=== PATIENT | male | born 1960 | race Caucasian/White ===

== ENCOUNTER 2017-07-06 20:09 | Inpatient (IN) | payer BC ==
[~2017-07-06] VITALS: Ht 165.1 cm; Wt 80.1 kg
--- NOTE | ~2017-07-06 | HP ---
History And Physical [id number] [place]. [address] NAME: AGA SELBY : 60 STATUS : ADM IN PAT#: [id number] AGE: 57 ADM/REG DATE : 07/06/17 MR#: [id number] REPORT SERV DATE: 07/06/17 DICTATED BY: MAYA CARIAS DATE: 07/06/17 REPORT STATUS : Draft TRANSCRIBED BY: MODL DATE: 07/06/17 DATE OF ADMISSION: 07/06/2017 The patient is a very pleasant 57-year-old male with a history of coronary artery disease, status post coronary artery bypass grafting in March, history of CHF, chronic systolic dysfunction with ejection fraction 29%, history of chronic kidney disease, hypertension, and hyperlipidemia presented with shortness of breath which was going on approximately for 10 days, progressively increasing initially on ambulation, then progressed to at rest as well as he had cough with clear sputum. The patient is also complaining of lower extremity swelling. He is complaining of substernal pain on and off. He said that after coronary artery bypass grafting, he was undergoing cardiac rehabilitation, but he was unable to finish his cardiac rehabilitation secondary to above-mentioned symptoms. Patient saw his special education resource teacher, Jonathan Hayes, recently, and he said that he recommended to continue cardiac rehabilitation therapy. The patient said that he was compliant with his medications and taking them regularly. PAST MEDICAL HISTORY: I dictated above, history of acute systolic heart failure exacerbation in March of this year, hypertension, ischemic cardiomyopathy, history of coronary artery bypass grafting in March of this year by Dr. Brar, chronic kidney disease, and diabetes. SURGICAL HISTORY: Includes only history of coronary artery bypass grafting. SOCIAL HISTORY: Patient used to smoke three packs a day before. He decreased to one to two cigarettes a day. He used to drink beer. No alcohol. He never used recreational drugs. FAMILY HISTORY: Positive for breast cancer in his mother, and father had coronary artery bypass grafting. ALLERGIES: HE SAID THAT MANY YEARS AGO, HE WAS TOLD THAT HE IS ALLERGIC TO DIABETIC MEDICATION, BUT HE CANNOT REMEMBER WHAT TYPE OF DIABETIC MEDICATION IT WAS. HOME MEDICATIONS: He takes carvedilol, aspirin, and other medications. Pharmacy is going to present the list to me to address. It is not clarified yet by pharmacy. PHYSICAL EXAMINATION: GENERAL: Well-nourished, well-developed male, not in acute distress, resting quietly. VITAL SIGNS: Blood pressure 191/87, temperature 98.2, heart rate 91, respiratory rate 18, and oxygen saturation 91 on room air. HEENT: Head atraumatic and normocephalic. Conjunctivae clear. Pupils are equal and reactive to light and accommodation. Extraocular muscles are intact. NECK: Supple. Trachea is midline. No supraclavicular or cervical lymphadenopathy. LUNGS: Diminished breath sounds bilaterally with mild rhonchi. Normal respiratory effort. CARDIOVASCULAR SYSTEM: Regular rate and rhythm. Point of maximal impulse not displaced. ABDOMEN: Soft, nontender, and nondistended. Positive normoactive bowel sounds. EXTREMITIES: No clubbing or cyanosis. 1+ edema. PSYCHIATRIC: Normal mood and affect. History And Physical [address] [address] NAME: AGA SELBY : 60 STATUS : ADM IN [facility]#: [id number] AGE: 57 ADM/REG DATE : 07/06/17 MR#: [id number] REPORT SERV DATE: 07/06/17 DICTATED BY: MAYA CARIAS DATE: 07/06/17 REPORT STATUS : Draft TRANSCRIBED BY: AGNIESZKA DATE: 07/06/17 NEUROLOGIC: Awake, alert, and oriented in time, place, and person. Muscle strength is 5/5 bilaterally in upper and lower extremities. SKIN: Normal color and turgor. LABORATORY RESULTS: Sodium 143, potassium 4.2, chloride 113, carbon dioxide 22, BUN 32, creatinine 1.99. His troponin is 0.09. His creatinine on May 14 was 1.73. White count 8.9, hemoglobin 11.3, hematocrit 34.3, and platelet count 226. PT 13.9, INR is 1.1. Chest x-ray showed cardiomegaly with pulmonary vascular congestion. BNP was 932.4. Troponin 0.09. His EKG showed normal sinus rhythm with a rate of 85, right bundle-branch block. ASSESSMENT AND PLAN: This is a very pleasant 57-year-old male with a past medical history of coronary artery disease, history of recent coronary artery bypass grafting, history of congestive heart failure, ischemic cardiomyopathy with ejection fraction 29%, history of diabetes, neuropathy as well as chronic kidney disease presented with. 1. Acute congestive heart failure exacerbation. 2. Hypertension, uncontrolled. 3. Chronic kidney disease, currently at the baseline. 4. Diabetes mellitus. We will admit the patient under cardiac telemetry for his acute CHF exacerbation. Patient already received Lasix intravenously in the emergency room. We will give him Bumex 1 mg IV b.i.d. x2 dosages and ask resident services manager to manage his diuretics. In the same time, we will do strict input and output and daily weights. Regarding his chest pain and minimally elevated troponin, we will treat his chest pain with nitroglycerin as needed and will monitor his troponin. His troponin is 0.09, but this could be related also to chronic kidney disease, abnormal creatinine increasing his troponin. Diabetes mellitus type 2. We will put him on insulin sliding scale. Currently, blood sugar is controlled and if necessary, my partner can add also Levemir. At home, he told me patient uses Levemir. Chronic kidney disease. Creatinine at baseline. Hypertension, hypertensive urgency. We will give the patient hydralazine as needed for systolic blood pressure more than 160. In the same time, we will use nitroglycerin for the chest pain and Bumex which should take care of the patient's blood pressure. I will also consult his special education resource teacher, Dr. Hayes, and my partner will see this patient starting tomorrow morning. MG/AGNIESZKA History And Physical [address] [address] NAME: AGA SELBY : 60 STATUS : ADM IN [facility]#: [id number] AGE: 57 ADM/REG DATE : 07/06/17 MR#: [id number] REPORT SERV DATE: 07/06/17 DICTATED BY: MAYA CARIAS DATE: 07/06/17 REPORT STATUS : Draft TRANSCRIBED BY: AGNIESZKA DATE: 07/06/17 Maya Carias M.D. / [id number] CC: RODNEY BEDOYA Jr, M.D. Gregg Shander, M.D. Wilson M. Clements, MD
--- NOTE | ~2017-07-06 | CN ---
Consultation Report [facility] [address] [place]. [address] NAME: AGA SELBY : 60 STATUS : ADM IN PAT#: [id number] AGE: 57 ADM/REG DATE : 07/06/17 MR#: [id number] REPORT SERV DATE: 07/07/17 DICTATED BY: NORM GOMEZ DATE: 07/07/17 REPORT STATUS : Draft TRANSCRIBED BY: MODL DATE: 07/07/17 CARDIOLOGY CONSULTATION DATE OF CONSULTATION: 07/07/2017 REASON FOR CONSULTATION: Congestive heart failure, patient with known history of coronary artery disease, status post recent CAB. HISTORY OF PRESENT ILLNESS: Mr. Selby is a pleasant 57-year-old gentleman with a history of coronary artery disease and ischemic cardiomyopathy. He underwent CAB in March of this year. At that time, his ejection fraction measured at 35%. I saw him back in my clinic in early May and he was still complaining of shortness of breath noting that he was having trouble performing cardiac rehab. He did not demonstrate other signs of congestive heart failure at that time. The plan was to continue him on his congestive heart failure regimen, minimize salt intake, and have him follow up with me in about six weeks, at which time we would have him undergo repeat echocardiogram to see if his left ventricular systolic function improve. In the interim, his symptoms progressed. He was complaining of PND, orthopnea, pedal edema. He also had chest discomfort around the sternal wound site and more recently began to complain of a left axillary pain as well. He presented to the emergency room with these complaints. His BNP was elevated at over 900. His chest x-ray demonstrated some evidence for pulmonary vascular congestion and also there was either a left pleural effusion versus left-sided diaphragmatic elevation. This was only an AP chest film, there was not a PA and lateral or decubitus, but an echocardiogram was performed today that demonstrated a large left pleural effusion and mildly decreased LV systolic function with ejection fraction of 45% which again has improved since the time of surgery when it was 35%. He has responded to some degree to the intravenous Bumex, but it is somewhat limited by the fact that he has underlying stage 3 kidney disease. He is still complaining of the left axillary pain. He also had an episode where he felt as though he was having chills, although his temperature here has been afebrile. He also complained of a productive cough at home. PAST MEDICAL HISTORY: 1. Notable for recent diagnosis of coronary artery disease, status post CAB in March 2017. 2. Chronic kidney disease between stage 2 and stage 3. 3. Chronic systolic heart failure, ejection fraction 35% at time of surgery, currently 45%. 4. History of tobacco abuse. 5. Hyperlipidemia. FAMILY HISTORY: Negative for premature coronary artery disease or sudden cardiac . SOCIAL HISTORY: Former cigarette smoker. Occasional social alcohol use. Occasional use of caffeinated beverages. No illicit drug use. Consultation Report [address] [address] NAME: AGA SELBY : 60 STATUS : ADM IN [facility]#: [id number] AGE: 57 ADM/REG DATE : 07/06/17 MR#: [id number] REPORT SERV DATE: 07/07/17 DICTATED BY: NORM GOMEZ DATE: 07/07/17 REPORT STATUS : Draft TRANSCRIBED BY: AGNIESZKA DATE: 07/07/17 REVIEW OF SYSTEMS: As noted above. All other systems reviewed and negative. PHYSICAL EXAMINATION: GENERAL: In no acute distress. VITAL SIGNS: Blood pressure currently is 146/70, it has been as high as 206/100. Heart rate is 76, in sinus rhythm. Respirations 16. Afebrile. HEENT: No icterus. Good dentition. NECK: Supple. No masses or thyromegaly. LUNGS: There was a decrease in breath sounds at the left base. There are no rales, rhonchi, or wheezes. COR: Normal S1, S2. No S3 or S4. No murmurs, clicks, rubs. No JVD. ABD: Soft, nondistended, nontender, no hepatosplenomegaly. EXT: No clubbing, cyanosis or edema. Peripheral pulses 2+ or equal bilaterally. SKIN: Warm and dry. No visible lesions. MS: Chest wall without deformity, no obvious clavicular fractures. NEURO/PSYCH: Oriented x3. No anxiety or depression. LABORATORY VALUES: Electrolytes within normal limits. Creatinine is 2.02, which is at his baseline. White count is 8.8 and stable, hematocrit is 34, platelet count of 224. There was a BNP only drawn on admission and was 932. His TSH is within normal limits. As mentioned, chest x-ray on admission was an AP film showed some evidence for pulmonary vascular congestion, but there was either a left pleural effusion or elevation in the left hemidiaphragm. There is some linear atelectasis noted as well. I cannot exclude the possibility of elevation in the left hemidiaphragm. The EKG demonstrates sinus rhythm with right bundle-branch block, nonspecific ST-T wave abnormalities. No evidence for ischemia infarction or chamber hypertrophy. IMPRESSION: 1. The patient presents with shortness of breath that has been progressive. He has a recent history of CAB and has an ischemic cardiomyopathy, although it appears to be improving by his echocardiogram. Additional symptoms include musculoskeletal sternal chest discomfort, likely related to his surgery as well as left axillary discomfort. He additionally complained of chills and a productive cough. His exam and x-ray would suggest that he has some element of congestive heart failure. He does have elevation in his BNP and his LV systolic function is modestly reduced. On the other hand, he has responded to IV diuretics, but he is still having some shortness of breath. His chest x-ray suggested that he may also have a pleural effusion versus elevation in the left hemidiaphragm and an echocardiogram showed evidence for a large left pleural effusion. I would recommend performing both the diagnostic and therapeutic tap of the left-sided pleural effusion. The patient will likely have symptomatically be improved and we may be able to get some information as to the nature of the effusion and whether this is just related to either his surgery or congestive heart failure or whether there may be an infectious component. We have discussed this with the patient and he is willing to Consultation Report [address] [place]. [address] NAME: AGA SELBY : 60 STATUS : ADM IN [facility]#: [id number] AGE: 57 ADM/REG DATE : 07/06/17 MR#: [id number] REPORT SERV DATE: 07/07/17 DICTATED BY: NORM GOMEZ DATE: 07/07/17 REPORT STATUS : Draft TRANSCRIBED BY: AGNIESZKA DATE: 07/07/17 proceed with thoracentesis which we will schedule with Interventional Radiology. 2. Hypertension, difficult to control blood pressures. Hydralazine added to the patient's carvedilol. 3. Cardiomyopathy actually improved ejection fraction now 45%. He is already on carvedilol. Due to his underlying renal insufficiency, he has not been given an RED inhibitor or ARB. GS/MODL Nomr Gomez M.D. / [id number] CC: José Luis Huddleston Mindi
[~2017-07-06 20:09] MED LIST: ASAB PO; COREG3 PO; LIPITOR40 PO; NORCO1 TAB PO; NOVOPEN SC; PLAVIX PO
[2017-07-06 20:57] LABS: BASOPHILS 0.4 %; BASOPHILS ABSOLUTE 0.04 10/3/uL (0.0-0.16); EOSINOPHILS 3.9 %; EOSINOPHILS ABSOLUTE 0.35 10/3/uL (0.0-0.53); HEMATOCRIT 34.3 % (40.0-51.0); HEMOGLOBIN 11.2 g/dL (13.6-17.8); IMMATURE GRANULOCYTES 0.2 %; IMMATURE GRANULOCYTES ABSOLUTE 0.02 10/3/uL (0.0-0.11); LYMPHOCYTES 20.1 %; LYMPHOCYTES ABSOLUTE 1.79 10/3/uL (0.67-4.30); MANUAL DIFF NO %; MEAN CORPUS HGB CONC 32.7 g/dL (32.0-36.0); MEAN CORPUSCULAR HEMOGLOB 27.3 pg (26.0-34.0); MEAN CORPUSCULAR VOLUME 83.5 fL (80-100); MEAN PLATELET VOLUME 9.6 fL (9.2-13.0); MONOCYTES 7.7 %; MONOCYTES ABSOLUTE 0.69 10/3/uL (0.21-1.20); NEUTROPHILS 67.7 %; NEUTROPHILS ABSOLUTE 6.03 10/3/uL (2.02-8.40); PLATELET COUNT 226 10/3/uL (150-400); RBC DISTRIBUTION WIDTH 15.3 % (12.0-16.0); RED CELL COUNT 4.11 10/6/uL (4.7-6.1); WHITE BLOOD CELLS 8.9 10/3/uL (4.5-10.5)
[2017-07-06 21:05] LABS: INTERNATIONAL NORMAL RATI 1.1 UNITS (-); PARTIAL THROMBO TIME 31.3 SEC (22.5-37.2); PROTIME (NOT ORD) 13.9 SEC (12.0-14.5)
[2017-07-06 21:12] LABS: CHLORIDE, SERUM 113 MMOL/L (96-112); CO2 (CARBON DIOXIDE) 22 MMOL/L (24-34); CREATININE 1.99 MG/DL (0.70-1.30); GFR AFRICAN AMERICAN 42 ML/MIN (>=60); GFR NON AFRICAN AMERICAN 36 ML/MIN (>=60); GLUCOSE, SERUM 98 MG/DL (60-99); POTASSIUM, SERUM 4.2 MMOL/L (3.5-5.3); SODIUM, SERUM 143 MMOL/L (135-148)
[2017-07-06 21:13] LABS: BUN (BLOOD UREA NITROGEN) 32 MG/DL (6-23)
[2017-07-06 21:14] LABS: CHEST PAIN PROFILE TAT 0 Hrs 21 Mins; TROPONIN I 0.09 NG/ML (<0.05)
[2017-07-06] MEDS ORDERED: HALF81 PO (23:09)
[2017-07-06] MEDS ORDERED: PROZ10 PO (23:10)
[2017-07-06] MEDS ORDERED: HUMALOG KW200 UNIT/1 SC (23:10)
[2017-07-06] MEDS ORDERED: TOUJEO SC (23:10)
[2017-07-06] MEDS ORDERED: COREG12 PO (23:11)
[2017-07-06] MEDS ORDERED: PLAVIX PO (23:11)
[2017-07-06] MEDS ORDERED: PRIN10 PO (23:11)
[2017-07-06] MEDS ORDERED: COREG6 PO (23:12)
[2017-07-06] MEDS ORDERED: L20 PO (23:12)
[2017-07-06] MEDS ORDERED: ZYRTEC ALLGY10 MG PO (23:13)
[2017-07-07 01:51] LABS: BASOPHILS 0.5 %; BASOPHILS ABSOLUTE 0.04 10/3/uL (0.0-0.16); EOSINOPHILS ABSOLUTE 0.35 10/3/uL (0.0-0.53); HEMATOCRIT 34.2 % (40.0-51.0); HEMOGLOBIN 11.7 g/dL (13.6-17.8); LYMPHOCYTES 18.6 %; LYMPHOCYTES ABSOLUTE 1.63 10/3/uL (0.67-4.30); MEAN CORPUS HGB CONC 34.2 g/dL (32.0-36.0); MEAN CORPUSCULAR HEMOGLOB 28.1 pg (26.0-34.0); MEAN CORPUSCULAR VOLUME 82.2 fL (80-100); MONOCYTES 7.5 %; MONOCYTES ABSOLUTE 0.66 10/3/uL (0.21-1.20); NEUTROPHILS 69.4 %; NEUTROPHILS ABSOLUTE 6.09 10/3/uL (2.02-8.40); PLATELET COUNT 224 10/3/uL (150-400); RBC DISTRIBUTION WIDTH 15.1 % (12.0-16.0); RED CELL COUNT 4.16 10/6/uL (4.7-6.1); WHITE BLOOD CELLS 8.8 10/3/uL (4.5-10.5)
[2017-07-07 01:52] LABS: MANUAL DIFF NO %
[2017-07-07 02:09] LABS: A/G RATIO 0.7 (0.7-1.9); ALBUMIN 2.7 G/DL (3.5-5.0); BUN (BLOOD UREA NITROGEN) 34 MG/DL (6-23); CALCIUM, SERUM 8.7 MG/DL (8.5-10.4); CHLORIDE, SERUM 109 MMOL/L (96-112); CO2 (CARBON DIOXIDE) 22 MMOL/L (24-34); CREATININE 2.02 MG/DL (0.70-1.30); GFR AFRICAN AMERICAN 41 ML/MIN (>=60); GFR NON AFRICAN AMERICAN 36 ML/MIN (>=60); GLOBULIN 3.9 G/DL (2.5-4.1); GLUCOSE, SERUM 88 MG/DL (60-99); POTASSIUM, SERUM 3.8 MMOL/L (3.5-5.3); SGOT(AST) 21 U/L (5-40); SGPT(ALT) 24 U/L (5-65); SODIUM, SERUM 143 MMOL/L (135-148); TOTAL PROTEIN 6.6 G/DL (6.0-8.5)
[2017-07-07 02:11] LABS: ALKALINE PHOSPHATASE 57 U/L (45-117); TOTAL BILIRUBIN 0.3 MG/DL (0-1.2)
[2017-07-07 02:15] LABS: TROPONIN I 0.08 NG/ML (<0.05); ULTRASENSITIVE TSH 2.98 MCIU/ML (0.358-3.740)
[2017-07-08 05:08] LABS: BASOPHILS 0.4 %; BASOPHILS ABSOLUTE 0.03 10/3/uL (0.0-0.16); EOSINOPHILS 5.1 %; EOSINOPHILS ABSOLUTE 0.42 10/3/uL (0.0-0.53); HEMATOCRIT 30.3 % (40.0-51.0); HEMOGLOBIN 10.1 g/dL (13.6-17.8); IMMATURE GRANULOCYTES 0.2 %; IMMATURE GRANULOCYTES ABSOLUTE 0.02 10/3/uL (0.0-0.11); LYMPHOCYTES 24.9 %; LYMPHOCYTES ABSOLUTE 2.06 10/3/uL (0.67-4.30); MANUAL DIFF NO %; MEAN CORPUS HGB CONC 33.3 g/dL (32.0-36.0); MEAN CORPUSCULAR HEMOGLOB 27.7 pg (26.0-34.0); MEAN CORPUSCULAR VOLUME 83.2 fL (80-100); MEAN PLATELET VOLUME 9.2 fL (9.2-13.0); MONOCYTES 6.7 %; MONOCYTES ABSOLUTE 0.55 10/3/uL (0.21-1.20); NEUTROPHILS 62.7 %; NEUTROPHILS ABSOLUTE 5.18 10/3/uL (2.02-8.40); PLATELET COUNT 211 10/3/uL (150-400); RBC DISTRIBUTION WIDTH 15.2 % (12.0-16.0); RED CELL COUNT 3.64 10/6/uL (4.7-6.1); WHITE BLOOD CELLS 8.3 10/3/uL (4.5-10.5)
[2017-07-08 05:17] LABS: PARTIAL THROMBO TIME 33.7 SEC (22.5-37.2); PROTIME (NOT ORD) 13.2 SEC (12.0-14.5)
[2017-07-08 05:22] LABS: CALCIUM, SERUM 8.4 MG/DL (8.5-10.4); CHLORIDE, SERUM 108 MMOL/L (96-112); CO2 (CARBON DIOXIDE) 21 MMOL/L (24-34); CREATININE 2.11 MG/DL (0.70-1.30); GFR AFRICAN AMERICAN 39 ML/MIN (>=60); GFR NON AFRICAN AMERICAN 34 ML/MIN (>=60); POTASSIUM, SERUM 4.3 MMOL/L (3.5-5.3); SODIUM, SERUM 139 MMOL/L (135-148)
[2017-07-08 05:26] LABS: BUN (BLOOD UREA NITROGEN) 38 MG/DL (6-23); GLUCOSE, SERUM 129 MG/DL (60-99)
[2017-07-08 15:52] LABS: GLUCOSE BODY FL (NOT ORD) 115 MG/DL; LDH BODY FLUID (NOT ORD) 71 U/L; PROTEIN BODY FLUID 1.8 G/DL
[2017-07-08 15:55] LABS: BF TOTAL CELL CT (NOT ORD 367 /MM3; BODY FLUID RBC (NOT ORD) 803 /MM3
[2017-07-08 16:00] LABS: BD FL LYMPH (NOT ORD) 62 %; BD FL SOURCE (NOT ORD) PLEURAL; BF BASO (NOT OF) 0 %; BF LARGE MONONUCLEAR 31 %; BODY FLUID EOS (NOT ORD) 0 %; BODY FLUID SEG (NOT ORD) 7 %
[2017-07-09 06:20] LABS: BASOPHILS 0.2 %; BASOPHILS ABSOLUTE 0.02 10/3/uL (0.0-0.16); EOSINOPHILS 4.9 %; EOSINOPHILS ABSOLUTE 0.41 10/3/uL (0.0-0.53); HEMOGLOBIN 10.5 g/dL (13.6-17.8); IMMATURE GRANULOCYTES 0.1 %; IMMATURE GRANULOCYTES ABSOLUTE 0.01 10/3/uL (0.0-0.11); LYMPHOCYTES 16.9 %; LYMPHOCYTES ABSOLUTE 1.42 10/3/uL (0.67-4.30); MEAN CORPUS HGB CONC 32.8 g/dL (32.0-36.0); MEAN CORPUSCULAR HEMOGLOB 27.8 pg (26.0-34.0); MEAN CORPUSCULAR VOLUME 84.7 fL (80-100); MEAN PLATELET VOLUME 9.8 fL (9.2-13.0); MONOCYTES 9.8 %; MONOCYTES ABSOLUTE 0.82 10/3/uL (0.21-1.20); NEUTROPHILS 68.1 %; PLATELET COUNT 232 10/3/uL (150-400); RBC DISTRIBUTION WIDTH 15.8 % (12.0-16.0); RED CELL COUNT 3.78 10/6/uL (4.7-6.1); WHITE BLOOD CELLS 8.4 10/3/uL (4.5-10.5)
[2017-07-09 06:21] LABS: MANUAL DIFF NO %
[2017-07-09 06:38] LABS: T PROTEIN (ELECT)(NOT OR 5.2 G/DL (6.0-8.5)
[2017-07-09 06:55] LABS: ALBUMIN 2.3 G/DL (3.5-5.0); BUN (BLOOD UREA NITROGEN) 35 MG/DL (6-23); CHLORIDE, SERUM 108 MMOL/L (96-112); CO2 (CARBON DIOXIDE) 24 MMOL/L (24-34); CREATININE 2.53 MG/DL (0.70-1.30); GFR AFRICAN AMERICAN 31 ML/MIN (>=60); GFR NON AFRICAN AMERICAN 27 ML/MIN (>=60); GLUCOSE, SERUM 175 MG/DL (60-99); POTASSIUM, SERUM 4.1 MMOL/L (3.5-5.3); SODIUM, SERUM 139 MMOL/L (135-148)
[2017-07-09 10:26] LABS: ALB RELATIVE % 49.9 % (60.0-89.0); ALBUMIN (ELECTRO) 2.59 GM/DL (3.2-5.5); ALPHA 1 (ELECTRO) 0.24 GM/DL (0.1-0.4); ALPHA 1 RELAT % (NOT ORD) 4.6 % (1.0-4.0); ALPHA 2 (ELECTRO) 1.07 GM/DL (0.5-1.10); ALPHA 2 RELAT % 20.5 % (4.5-26.0); BETA GLOBULIN (SPE) 0.62 GM/DL (0.60-1.30); GAMMA GLOBULIN (SPE) 0.68 G/DL (0.70-1.60)
[2017-07-09] MEDS ORDERED: APRES50 PO (12:42)
== END 2017-07-09 14:05 | disposition home or self-care (01) | DRG 291 ==
LOC: ER 20:09 → 7NO 23:34
PROVIDERS: Emergency Medicine; Hospitalist; Internal Medicine Cardiovascular Disease; Nurse Practitioner Gerontology; Radiology Vascular & Interventional Radiology
PROC: 0W9B3ZX Drainage of Left Pleural Cavity, Percutaneous Approach, Diagnostic (ICD-10-PCS; principal; 2017-07-08)
DX: I13.0 Hypertensive heart and chronic kidney disease with heart failure and stage 1 through stage 4 chronic kidney disease, or unspecified chronic kidney disease (principal); I50.23 Acute on chronic systolic (congestive) heart failure; J91.8 Pleural effusion in other conditions classified elsewhere; E11.22 Type 2 diabetes mellitus with diabetic chronic kidney disease; N18.3 Chronic kidney disease, stage 3 (moderate); I16.0 Hypertensive urgency; I25.5 Ischemic cardiomyopathy; I25.10 Atherosclerotic heart disease of native coronary artery without angina pectoris; E78.5 Hyperlipidemia, unspecified; Z95.1 Presence of aortocoronary bypass graft; Z87.891 Personal history of nicotine dependence
CPT/HCPCS: 32555; 71010; 80048; 80053; 82040; 82042; 82945; 82962; 83036; 83615; 83735; 83880; 84155; 84157; 84165; 84443; 84484; 85025; 85610; 85730; 87070; 87205; 88112; 88305; 89051; 93005; 93306; 94640; 96374; 99285; A9270-GY; J0360; J1940; J2405